=== PATIENT | female | born 1980 | race Caucasian/White ===

== ENCOUNTER 2022-12-27 12:02 | Outpatient (CLI) | payer MEDICARE, MEDICAID | END 2022-12-27 12:03 | disposition home or self-care (01) | LOC: CSHULT 12:02 | PROVIDERS: ATTEND Internal Medicine | DX: C53.9 Malignant neoplasm of cervix uteri, unspecified (principal); Z79.899 Other long term (current) drug therapy | CPT/HCPCS: 93306 ==

== ENCOUNTER 2023-01-15 16:20 | Emergency (ER) | payer MEDICARE, MEDICAID ==
[2023-01-15] MEDS ORDERED: Acetaminophen 500 MG TAB ONE (17:20)
[2023-01-15 17:40] LABS: ALT (SGPT) 18 U/L (8-55); AST (SGOT) 13 U/L (5-34); Albumin 3.6 g/dL (3.5-5.0); Alkaline Phosphatase 84 U/L (40-110); Anion Gap 15 mmol/L (10-20); BUN (Urea Nitrogen) 12 mg/dL (7.0-18.7); Bilirubin, Total 1.2 mg/dL (0.2-1.2); Calc. Creatinine Clearance 0 mL/min (70-130); Calcium 8.8 mg/dL (7.8-10.44); Carbon Dioxide 29 mmol/L (22-29); Chloride 95 mmol/L (98-107); Estimated GFR 88; Globulin 3.9 g/dL (2.4-3.5); Glucose 139 mg/dL (70-105); Protein, Total 7.5 g/dL (6.0-8.3); Sodium 136 mmol/L (136-145)
[2023-01-15 17:43] LABS: Potassium 2.6 mmol/L (3.5-5.1)
[2023-01-15 17:49] LABS: %Basophils 3.8 % (0.0-2.0); %Eosinophils 3.8 % (0.0-6.0); %Lymphocytes 88.5 % (18.0-47.0); %Neutrophils 3.9 % (40.0-75.0); Hemoglobin 11.3 g/dL (12.0-15.5); Mean Corpuscular HGB CONC 33.7 g/dL (32.0-36.0); Mean Corpuscular Hemoglobin 26.7 pg (27.0-33.0); Mean Corpuscular Volume 79.2 fl (81.6-98.3); Mean Platelet Volume 9.2 fl (7.4-10.4); Platelet Count 52 10x3/uL (150-450); RBC Distribution Width 15.2 % (11.5-14.5)
[2023-01-15 17:51] LABS: White Blood Cell (WBC) Count 0.3 10x3/uL (3.5-10.5)
[2023-01-15 17:52] LABS: Red Blood Cell (RBC) Count 4.23 10x6/uL (3.90-5.03)
[2023-01-15 18:10] LABS: SARS-CoV-2 NAA Rapid Test Not Detected (NotDetected)
[2023-01-15] MEDS ORDERED: Potassium Chloride 20 MEQ TAB ONE (18:27)
[2023-01-15] MEDS ORDERED: Potassium Chloride 20 MEQ/100 ML PREMIX BAG ONE (18:28)
== END 2023-01-15 20:57 | disposition home or self-care (01) ==
LOC: CSHERS 16:20
DX: D70.9 Neutropenia, unspecified (principal); I10 Essential (primary) hypertension; Z20.822 Contact with and (suspected) exposure to COVID-19
CPT/HCPCS: 0240U; 71045; 80053; 83605; 85025; 87040; 87081; 87430; 96365; 96366; 96368; 99283; J1956; J3480

== ENCOUNTER 2023-01-19 10:12 | Outpatient (CLI) | payer MEDICARE, MEDICAID | END 2023-01-19 10:13 | disposition home or self-care (01) | LOC: CSHCT 10:12 | PROVIDERS: ATTEND Internal Medicine | DX: C53.9 Malignant neoplasm of cervix uteri, unspecified (principal); D70.9 Neutropenia, unspecified; R07.0 Pain in throat; R59.9 Enlarged lymph nodes, unspecified | CPT/HCPCS: 70491 ==

== ENCOUNTER 2023-02-01 13:16 | Emergency (ER) | payer MEDICARE, MEDICAID | END 2023-02-01 16:43 | disposition home or self-care (01) | LOC: CSHERS 13:16 | DX: M72.2 Plantar fascial fibromatosis (principal); I10 Essential (primary) hypertension ==

== ENCOUNTER 2025-01-23 15:12 | Emergency (ER) | payer MEDICARE, OTHER | END 2025-01-23 16:21 | disposition home or self-care (01) | LOC: CSHERS 15:12 | DX: S50.02XA Contusion of left elbow, initial encounter (principal); I10 Essential (primary) hypertension; W19.XXXA Unspecified fall, initial encounter | CPT/HCPCS: 99283 ==